=== PATIENT | female | born 1990 ===

== ENCOUNTER 2017-03-31 09:51 | Emergency (ER) | payer SELFPAY ==
[2017-03-31 09:58] VITALS: BMI 25.9
[2017-03-31 10:00] VITALS: BP 116/63; PULSE 71; RESP 19; TEMP 97.8; O2SAT 100
--- NOTE | 2017-03-31 10:51 | ED PDOC ---
HPI: Female Pain Time Seen by Provider: 03/31/17 10:06 Chief Complaint (Nursing): Abdominal Pain Chief Complaint (Provider): Abdominal Pain History Per: Patient History/Exam Limitations: no limitations Onset/Duration Of Symptoms: Days Current Symptoms Are (Timing): Still Present Severity: Mild Quality Of Discomfort: "Pain" Associated Symptoms: Urinary Symptoms. denies: Fever, Nausea, Diarrhea Alleviating Factors: None Additional Complaint(s): Patient is a 26 year old female who presents to ED for dysuria and hesitancy for 1 day. Patient notes mild suprapubic pain but denies nausea, vomiting, fever or hematuria. Admits she took no medication at home for symptoms Past Medical History Reviewed: Historical Data, Nursing Documentation, Vital Signs Vital Signs: Last Vital Signs Temp 97.8 F 03/31/17 09:58 Pulse 71 03/31/17 09:58 Resp 19 03/31/17 09:58 BP 116/63 03/31/17 09:58 Pulse Ox 100 03/31/17 09:58 - Medical History PMH: No Chronic Diseases - Surgical History Surgical History: Appendectomy - Family History Family History: States: Unknown Family Hx - Living Arrangements Living Arrangements: With Family - Home Medications Home Medications: Ambulatory Orders Medication Instructions Recorded Pnv with Ca,No.72/Iron/FA 1 tab PO DAILY #90 tab 03/14/15 [ Vitamins Plus] Ferrous Sulfate 325 mg PO BID #60 tab 11/18/15 Ibuprofen [Motrin] 600 mg PO Q6 PRN #30 tab 11/18/15 Sennosides A and B [Senokot Tab] 17.2 mg PO HS #30 tab 11/18/15 Nitrofurantoin Macrocrystals 100 mg PO BID #14 cap 03/31/17 [Macrobid] Phenazopyridine [Pyridium] 200 mg PO TID PRN #6 tab 03/31/17 - Allergies Allergies/Adverse Reactions: Allergies Allergy/AdvReac Type Severity Reaction Status Date / Time No Known Allergies Allergy Verified 03/27/15 22:20 Review of Systems ROS Statement: Except As Marked, All Systems Reviewed And Found Negative Constitutional: Negative for: Fever, Chills Gastrointestinal: Positive for: Abdominal Pain. Negative for: Nausea, Vomiting , Diarrhea Genitourinary Female: Positive for: Dysuria, Other (hesitancy). Negative for: Frequency, Hematuria, Vaginal Discharge, Vaginal Bleeding Musculoskeletal: Negative for: Back Pain Physical Exam - Reviewed Nursing Documentation Reviewed: Yes Vital Signs Reviewed: Yes - Physical Exam Appears: Positive for: Non-toxic, No Acute Distress Skin: Positive for: Normal Color, Warm Eye Exam: Positive for: Normal appearance Neck: Positive for: Normal Cardiovascular/Chest: Positive for: Regular Rate, Rhythm. Negative for: Murmur Respiratory: Positive for: Normal Breath Sounds. Negative for: Respiratory Distress Gastrointestinal/Abdominal: Positive for: Normal Exam, Soft. Negative for: Tenderness, Distended Back: Positive for: Normal Inspection. Negative for: L CVA Tenderness, R CVA Tenderness Extremity: Positive for: Normal ROM Neurologic/Psych: Positive for: Alert, Oriented - Laboratory Results Urine POC: Negative Urine dip results: Positive for: Leukocyte Esterase, Blood, Nitrate, Protein. Negative for: Ketones, Glucose, Bilirubin - ECG O2 Sat by Pulse Oximetry: 100 (RA) Pulse Ox Interpretation: Normal Medical Decision Making Medical Decision Making: Time: 1005 Initial impression: Abdominal pain r/o UTI Initial plan: -- Urine dip -- Urine preg Scribe Attestation: Documented by Tracey Sanders acting as a scribe for Haritha Rand MD MD Scribe Attestation: All medical record entries made by the Scribe were at my direction and personally dictated by me. I have reviewed the chart and agree that the record accurately reflects my personal performance of the history, physical exam, medical decision making, and the department course for this patient. I have also personally directed, reviewed, and agree with the discharge instructions and disposition. Disposition - Clinical Impression Clinical Impression: UTI (lower urinary tract infection) - Disposition Referrals: [facility] [Outside] Disposition: Routine/Home Disposition Time: 10:51 Condition: GOOD Prescriptions: Nitrofurantoin Macrocrystals [Macrobid] 100 mg PO BID #14 cap Phenazopyridine [Pyridium] 200 mg PO TID PRN #6 tab PRN Reason: Bladder Spasm Instructions: Urinary Tract Infection in Women (ED) Print Language: KINYARWANDA
--- NOTE | 2017-03-31 10:51 | ED PDOC ---
HPI: Female Pain Time Seen by Provider: 03/31/17 10:06 Chief Complaint (Nursing): Abdominal Pain Past Medical History Vital Signs: Last Vital Signs Temp 97.8 F 03/31/17 09:58 Pulse 71 03/31/17 09:58 Resp 19 03/31/17 09:58 BP 116/63 03/31/17 09:58 Pulse Ox 100 03/31/17 09:58 - Surgical History Surgical History: Appendectomy - Family History Family History: States: Unknown Family Hx - Home Medications Home Medications: Ambulatory Orders Medication Instructions Recorded Pnv with Ca,No.72/Iron/FA 1 tab PO DAILY #90 tab 03/14/15 [ Vitamins Plus] Ferrous Sulfate 325 mg PO BID #60 tab 11/18/15 Ibuprofen [Motrin] 600 mg PO Q6 PRN #30 tab 11/18/15 Sennosides A and B [Senokot Tab] 17.2 mg PO HS #30 tab 11/18/15 Nitrofurantoin Macrocrystals 100 mg PO BID #14 cap 03/31/17 [Macrobid] Phenazopyridine [Pyridium] 200 mg PO TID PRN #6 tab 03/31/17 - Allergies Allergies/Adverse Reactions: Allergies Allergy/AdvReac Type Severity Reaction Status Date / Time No Known Allergies Allergy Verified 03/27/15 22:20 - ECG O2 Sat by Pulse Oximetry: 100 Disposition - Clinical Impression Clinical Impression: UTI (lower urinary tract infection) - Disposition Referrals: [facility] [Outside] Disposition: Routine/Home Disposition Time: 10:50 Condition: GOOD Prescriptions: Nitrofurantoin Macrocrystals [Macrobid] 100 mg PO BID #14 cap Phenazopyridine [Pyridium] 200 mg PO TID PRN #6 tab PRN Reason: Bladder Spasm Instructions: Urinary Tract Infection in Women (ED) Print Language: IRANIAN
== END 2017-03-31 11:36 | disposition home or self-care (01) ==
LOC: H.ER 09:51
DX: N39.0 Urinary tract infection, site not specified (principal)

== ENCOUNTER 2017-11-01 14:07 | Emergency (ER) | payer OTHER ==
[2017-11-01 14:08] VITALS: BMI 25.9
[2017-11-01 14:28] VITALS: BP 107/68; PULSE 71; RESP 22; TEMP 98; O2SAT 100
--- NOTE | 2017-11-01 15:09 | ED PDOC ---
HPI: Abdomen Time Seen by Provider: 11/01/17 14:30 Chief Complaint (Nursing): Abdominal Pain Chief Complaint (Provider): Abdominal pain History Per: Patient History/Exam Limitations: no limitations Onset/Duration Of Symptoms: Days (3) Additional Complaint(s): Pt presents with lower abdominal pain and bloating X 3 days, had + test at home. Denies nausea, vomiting, vaginal bleeding, dysuria, hematuria. Pt with h/o ectopic on R side with resultant tuba removal. Abnormal Vaginal Bleeding: No Past Medical History Reviewed: Nursing Documentation, Vital Signs Vital Signs: Last Vital Signs Temp 98 F 11/01/17 14:25 Pulse 71 11/01/17 14:25 Resp 22 11/01/17 14:25 BP 107/68 11/01/17 14:25 Pulse Ox 100 11/01/17 16:41 - Medical History PMH: No Chronic Diseases - Surgical History Surgical History: Appendectomy Other surgeries: Ecoptic - Family History Family History: States: Unknown Family Hx - Living Arrangements Living Arrangements: With Family - Social History Current smoker - smoking cessation education provided: No - Home Medications Home Medications: Ambulatory Orders Medication Instructions Recorded Pnv with Ca,No.72/Iron/FA 1 tab PO DAILY #90 tab 03/14/15 [ Vitamins Plus] Ferrous Sulfate 325 mg PO BID #60 tab 11/18/15 Ibuprofen [Motrin] 600 mg PO Q6 PRN #30 tab 11/18/15 Sennosides A and B [Senokot Tab] 17.2 mg PO HS #30 tab 11/18/15 Nitrofurantoin Macrocrystals 100 mg PO BID #14 cap 03/31/17 [Macrobid] Phenazopyridine [Pyridium] 200 mg PO TID PRN #6 tab 03/31/17 Nitrofurantoin Macrocrystals 100 mg PO BID #13 cap 11/01/17 [Macrobid] Vit Calc,Iron,Folic 1 each PO DAILY #30 tablet 11/01/17 [ Vitamins] - Allergies Allergies/Adverse Reactions: Allergies Allergy/AdvReac Type Severity Reaction Status Date / Time No Known Allergies Allergy Verified 03/27/15 22:20 Review of Systems Constitutional: Negative for: Fever, Chills Cardiovascular: Negative for: Chest Pain Respiratory: Negative for: Cough, Shortness of Breath Gastrointestinal: Positive for: Abdominal Pain. Negative for: Nausea, Vomiting , Diarrhea Genitourinary Female: Negative for: Dysuria, Hematuria, Vaginal Discharge, Vaginal Bleeding Skin: Negative for: Rash, Lesions Neurological: Negative for: Headache Physical Exam - Reviewed Nursing Documentation Reviewed: Yes Vital Signs Reviewed: Yes - Physical Exam Appears: Positive for: Well, No Acute Distress Skin: Positive for: Normal Color, Warm, Dry Eye Exam: Positive for: Normal appearance, EOMI, PERRL Cardiovascular/Chest: Positive for: Regular Rate, Rhythm Respiratory: Positive for: Normal Breath Sounds Gastrointestinal/Abdominal: Positive for: Bowel Sounds, Soft, Tenderness (Mild suprapubic). Negative for: Mass, Distended, Guarding, Rebound Back: Positive for: Normal Inspection Extremity: Positive for: Normal ROM Neurologic/Psych: Positive for: Alert, Oriented - Laboratory Results Result Diagrams: 11/01/17 15:06 11/01/17 15:06 - ECG O2 Sat by Pulse Oximetry: 100 Medical Decision Making Medical Decision Makin yo with lower abdominal pain. - labs - pelvic ultrasound - Tylenol --16:22 FINDINGS:Obstetrical ultrasound There is a small cystic structure within the endometrial echo complex measuring 4 mm in diameter. This could represent an early intrauterine gestation. It is out of range for determination of age by gestational sac diameter. Questionable yolk sac seen. Cannot identified pole at this time. No detectable cardiac activity. The uterus measures 8.5 x 5.0 x 6.1 cm. There is no uterine mass. The endometrium measures 20 mm in width. The right ovary measures 1.7 x 1.7 x 3.2 cm. Normal flow is demonstrated with Doppler interrogation. The left ovary measures 3.5 x 4.3 x 4.8 cm. There is a simple left ovarian cyst measuring 2.7 x 3.8 x 3.9 cm. Normal flow is demonstrated within the left ovary by Doppler interrogation. IMPRESSION: Possible early intrauterine gestation, out of range for determination of age. Follow-up advised with serial beta HCG and transvaginal pelvic ultrasound examination. Incidental 3.9 cm simple left ovarian cyst. Findings discussed in detail with the patient, as well as need for close outpatient follow-up. States she will make appt @ [facility]. Disposition - Clinical Impression Clinical Impression: Abdominal pain during , UTI in - [facility]position [facility] Disposition: Routine/Home Disposition Time: 17:23 Condition: STABLE Additional Instructions: TAKE TYLENOL NEEDED FOR PAIN. Prescriptions: Nitrofurantoin Macrocrystals [Macrobid] 100 mg PO BID #13 cap Vit Calc,Iron,Folic [ Vitamins] 1 each PO DAILY #30 tablet Instructions: Abdominal Pain in (ED), Urinary Tract Infection in (ED) Forms: [employer] (Nepalese) Print Language: DOMINICAN
[2017-11-01 15:42] LABS: BASO % 0.4 % (0.0-2.0); EOS # 0.1 K/uL (0.0-0.7); EOS % 1.7 % (0.0-4.0); HEMOGLOBIN 14.4 g/dL (12.0-16.0); LYMPH # 2.2 K/uL (1.0-4.3); LYMPH % 32.9 % (20.0-40.0); MEAN CELL VOLUME 88.4 fl (81.0-99.0); MEAN CORPUSCULAR HEMOGLOBIN 30.1 pg (27.0-31.0); MEAN CORPUSCULAR HGB CONC 34.1 g/dL (33.0-37.0); MEAN PLATELET VOLUME 9.3 fl (7.2-11.7); MONO # 0.6 K/uL (0.0-0.8); MONO % 8.6 % (0.0-10.0); NEUT # 3.8 K/uL (1.8-7.0); NEUT % 56.4 % (50.0-75.0); RBC 4.8 Mil/uL (3.80-5.20); RED CELL DISTRIBUTION WIDTH 13.7 % (11.5-14.5); WHITE BLOOD COUNT 6.7 K/uL (4.8-10.8)
[2017-11-01 15:53] LABS: ALB/GLOB RATIO 1.3 (1.0-2.1); ALBUMIN 4.5 g/dL (3.5-5.0); ALT/SGPT 219 U/L (9-52); AST/SGOT 108 U/L (14-36); BLOOD UREA NITROGEN 10 mg/dl (7-17); CALCIUM 9.7 mg/dL (8.4-10.2); GFR AFRICAN-AMERICAN > 60; GFR NON-AFRICAN AMERICAN > 60
[2017-11-01 16:02] LABS: SQUAMOUS EPITHIAL 12 /hpf (0-5); URINE BACTERIA OCC (<OCC); URINE BILIRUBIN NEGATIVE (NEGATIVE); URINE BLOOD SMALL (NEGATIVE); URINE CLARITY CLOUDY (Clear); URINE COLOR YELLOW (YELLOW); URINE GLUCOSE (UA) NEG (Normal); URINE LEUKOCYTE ESTERASE LARGE Leu/uL (Negative); URINE NITRATE NEGATIVE (NEGATIVE); URINE PROTEIN NEGATIVE (NEGATIVE); URINE UROBILINOGEN 0.2-1.0 mg/dL (0.2-1.0)
--- NOTE | 2017-11-01 16:24 | US ---
PROCEDURE: Obstetrical ultrasound examination HISTORY: Lower abd pain COMPARISON: Not available TECHNIQUE: Transvaginal FINDINGS: There is a small cystic structure within the endometrial echo complex measuring 4 mm in diameter. This could represent an early intrauterine gestation. It is out of range for determination of age by gestational sac diameter. Questionable yolk sac seen. Cannot identified pole at this time. No detectable cardiac activity. The uterus measures 8.5 x 5.0 x 6.1 cm. There is no uterine mass. The endometrium measures 20 mm in width. The right ovary measures 1.7 x 1.7 x 3.2 cm. Normal flow is demonstrated with Doppler interrogation. The left ovary measures 3.5 x 4.3 x 4.8 cm. There is a simple left ovarian cyst measuring 2.7 x 3.8 x 3.9 cm. Normal flow is demonstrated within the left ovary by Doppler interrogation. IMPRESSION: Possible early intrauterine gestation, out of range for determination of age. Follow-up advised with serial beta HCG and transvaginal pelvic ultrasound examination. Incidental 3.9 cm simple left ovarian cyst.
== END 2017-11-01 18:00 | disposition home or self-care (01) ==
LOC: H.ER 14:07
DX: O23.40 Unspecified infection of urinary tract in pregnancy, unspecified trimester (principal); N83.291 Other ovarian cyst, right side

== ENCOUNTER 2018-06-16 09:50 | Emergency (ER) | payer MEDICAID, SELFPAY ==
[2018-06-16] MEDS ORDERED: Midazolam 2 MG/2 ML VIAL ONE (10:37)
[2018-06-16] MEDS: Lactated Ringer's 1,000 ML IV SCH ×2 (10:45→18:45)
--- NOTE | 2018-06-16 17:25 | OBHP ---
Datetime: 06/16/2018 10:33 IP Adm Impression: Term, intrauterine IP Admit Plan: Observation/Evaluation Admit Comment, IP Provider: Pt is a 27 y/o female with IUP 37 wks (ED 07/06) w/ hx of incompeten t cervix s/p cerclage placement, here for scheduled cerclage removal by Dr. Trimble. Pt denies any ctx , vb, lof. +FM. PNC: Dr. Trimble. Cerclage placed on 01/15/2018. Was taking Vaginal progesterone until 37 wks. OBHx: 1 prior SAB, 1 prior Ectopic s/p R. Tubal removal (2014), 1 prior NVD complicated with incom petent cervix (s/p cerclage) and preeclampsia (IOD at 38 wks)- 2015. PMHX: denies Surg Hx: Appendectomy, R. Tubal removal Meds: PNV Social: Denies habits x3 Allergies: NKDA VSS General: NAD Cardiopulmonary exam wnl Abdomen: Gravid, NT Ext: no edema FHR 147, reactive A: IUP 37.1 wks w/ hx of incompetent cervix s/p cerclage, here for scheduled cerclage removal by Yariel Trimble. P: Remove cerclage at bedside. Anesthesia called for sedation as pt was uncomfortable. Continuous monitoring. Discussed case w/ Dr. Atilio Washington PGY2 (Annotations: Data stored by CPN on behalf of user) Pelvic Type - PN: Adequate Extremities - PN: Normal Abdomen - PN: Normal Back - PN: Not Done Breast - PN: Not Done Lungs - PN: Normal Heart - PN: Normal Thyroid - PN: Not Done Neurologic - PN: Normal HEENT - PN: Normal General - PN: Normal EGA AdmitDate IP: 39.6 Vital Signs Provider: Reviewed IP Chief Complaint: Other Genitourinary Exam: Not Done DTRs - PN: Not Done
[2018-06-16 17:41] LABS: HEMOGLOBIN 11.7 g/dL (12.0-16.0); MEAN CELL VOLUME 83.3 fl (81.0-99.0); MEAN CORPUSCULAR HEMOGLOBIN 27.8 pg (27.0-31.0); MEAN CORPUSCULAR HGB CONC 33.4 g/dL (33.0-37.0); RBC 4.2 Mil/uL (3.80-5.20); RED CELL DISTRIBUTION WIDTH 15.8 % (11.5-14.5)
--- NOTE | 2018-06-16 18:52 | OBHP ---
Datetime: 06/16/2018 18:41 IP Adm Impression: Term, intrauterine IP Admit Plan: Admit to unit Admit Comment, IP Provider: Patient at 37.1 wks s/p Cerclage removal As patient with increased discomfort and pain with attempted cerclage removal, anesthesia consulte d for pain management and patient given Spinal anesthesia without complication. Patient taken to the OR and placed in the dorsal lithotomy position after anesthesia given without complication. Weighted speculum placed in the vagina and Breisky retractor used for lateral wall ret raction. Cerclage x 2 then well visualized. Ring forcep used to hold more posterior cerclage. Cerclag e then elevated and cut lateral to the knot with a [place] scissors. Cerclage then removed with gentle t raction. More anterior suture then removed in a similar fashion. Both stitches appeared grossly intac t. Minimal bleeding stopped with direct pressure. Patient tolerated procedure well. A/P: Patient at 37 wks with Cerclage removal under anesthesia --Will reexamine patient in 1 hr to r/o labor after cerclage removal --Will observe patient for 6 hrs post spinal --Will continue monitoring --If no onset of labor, patient to be discharged home with labor precautions and follow up as olivia blair on 06/18 FHR - Baseline A Provider: 140 EGA AdmitDate IP: 39.6 Vital Signs Provider: Reviewed IP Chief Complaint: Other NICHD Variability Prov Fetus A: Moderate 6-25bpm NICHD Accel Fetus A IP Provider: 15X15 Dilatation, Provider: Maci
[2018-06-18] MEDS ORDERED: Fentanyl/Bupivacaine HCl 250 ML EPI ONE (10:05)
[2018-06-19 17:33] VITALS: BP 121/82; PULSE 92; RESP 18; TEMP 97.9; O2SAT 100
== END 2018-06-17 10:30 | disposition home or self-care (01) ==
LOC: H.EROB2 09:50 → H.L&D 09:51 → H.EROB2 06-17 10:30
DX: O34.33 Maternal care for cervical incompetence, third trimester (principal); Z3A.37 37 weeks gestation of pregnancy
CPT/HCPCS: 85027; 99283; J7120

== ENCOUNTER 2018-06-22 22:53 | Emergency (ER) | payer OTHER ==
[2018-06-22 23:37] VITALS: BMI 30.4
[2018-06-23 00:06] LABS: SQUAMOUS EPITHIAL < 1 /hpf (0-5); URINE BACTERIA RARE (<OCC); URINE BILIRUBIN NEGATIVE (NEGATIVE); URINE BLOOD NEGATIVE (NEGATIVE); URINE CLARITY SLIGHTY-CLOUDY (Clear); URINE COLOR YELLOW (YELLOW); URINE GLUCOSE (UA) NEG (Normal); URINE LEUKOCYTE ESTERASE NEG Leu/uL (Negative); URINE PROTEIN NEGATIVE (NEGATIVE); URINE UROBILINOGEN 0.2-1.0 mg/dL (0.2-1.0)
[2018-06-23 04:30] VITALS: BP 121/85; PULSE 80; O2SAT 100
== END 2018-06-23 00:28 | disposition home or self-care (01) ==
LOC: H.EROB2 22:53
DX: O26.93 Pregnancy related conditions, unspecified, third trimester (principal); R10.2 Pelvic and perineal pain; O09.93 Supervision of high risk pregnancy, unspecified, third trimester; Z3A.38 38 weeks gestation of pregnancy; O47.1 False labor at or after 37 completed weeks of gestation

== ENCOUNTER 2018-06-27 09:00 | Inpatient (IN) | payer MEDICAID, SELFPAY ==
[2018-06-27 09:37] VITALS: BMI 32.3
[2018-06-27] MEDS ORDERED: Lactated Ringer's 500 ML IV SCH (10:00)
[2018-06-27] MEDS ORDERED: Lactated Ringer's 1,000 ML IV SCH ×2 (10:00→11:15)
[2018-06-27] MEDS ORDERED: Fentanyl/Bupivacaine HCl 250 ML EPI ONE (10:09)
[2018-06-27 10:17] LABS: BASO % 0.3 % (0.0-2.0); EOS # 0.1 K/uL (0.0-0.7); EOS % 0.9 % (0.0-4.0); HEMOGLOBIN 12.3 g/dL (12.0-16.0); LYMPH # 2.4 K/uL (1.0-4.3); LYMPH % 30.7 % (20.0-40.0); MEAN CELL VOLUME 81.4 fl (81.0-99.0); MEAN CORPUSCULAR HEMOGLOBIN 27.1 pg (27.0-31.0); MEAN CORPUSCULAR HGB CONC 33.3 g/dL (33.0-37.0); MEAN PLATELET VOLUME 9.7 fl (7.2-11.7); MONO # 0.6 K/uL (0.0-0.8); NEUT # 4.7 K/uL (1.8-7.0); NEUT % 60.1 % (50.0-75.0); NRBC % 0.2 % (0.0-0.0); RBC 4.55 Mil/uL (3.80-5.20); RED CELL DISTRIBUTION WIDTH 16.1 % (11.5-14.5); WHITE BLOOD COUNT 7.8 K/uL (4.8-10.8)
[2018-06-27] MEDS ORDERED: Oxytocin 30 UNIT 30 UNITS/500 ML BAG IV ONE ×2 (10:22→11:18)
[2018-06-27] MEDS ORDERED: Oxycodone/Acetaminophen 5/325 mg Tab PO PRN ×2 (10:59→14:14)
[2018-06-27] MEDS ORDERED: Benzocaine/Menthol SPRAY TOP PRN ×2 (10:59→14:14)
--- NOTE | 2018-06-27 11:03 | OBHP ---
Datetime: 06/27/2018 10:04 IP Adm Impression: Term, intrauterine IP Admit Plan: Admit to unit Admit Comment, IP Provider: HPI: 27 y/o with EGA 38.6, EDC 07/06/18, who presents today with c /o Uterine CONTX Q 5min, LOF and pelvic pain that started at 8AM. Denies vaginal bleeding. Denies tra ben, fall or any other complain now. Reports FM recnetly. OBGYN: Hx of Ectpic x1 , miscarriage x1, Third : had cervical cerclage and pree clapnsia, term . Current had cerclage. Care Provider: Dr Trimble. ROS: unremarkable, except HPI. PMH: None FMH: Mother HTN Allerg: NKA SURG: Appendectomy. MEDS: ASA 81 QD, PNV, Progesterone vag LABS: HIV neg, HB neg, GBS negative 06/18, Rubella +/inmune, GC/CL nonreactive, RPR neg, A/P 27 y/o with EGA 38.6, EDC 07/06/18 presenting with CONTX Q3 min. Patient is 5 cm dilation, with regular CONTX, we expect the patient to advance to active labor matilda ckly -Admit to L_D -Monitor Maternal VS, CONTX -FHR tracing monitoring -Type and screen -Anesthesai eval for epidural -IVF hydration with LR Case discussed with attending Dr Ana Sandoval MD PGY1 Attending Note: Patient was seen and evaluated with the resident and I agree with the assessment above. FHR - Baseline A Provider: 140 Comments, ACOG Physical Exam: GEN: NAD HEENT: normocephalic, EOMI RESP: CTA b/l CV: RRR, No murmurs noted ABD: Gravid LE: no edema IP Hx Assessment: The History has been Reviewed and is Current EGA AdmitDate IP: 38.5 Vital Signs Provider: Reviewed; Within Normal Limits IP Chief Complaint: Uterine contractions NICHD Variability Prov Fetus A: Moderate 6-25bpm NICHD Accel Fetus A IP Provider: 15X15 FHR Category Provider Fetus A: Category I Dilatation, Provider: 5 Effacement, Provider: 90 Station, Provider: -2 Datetime: 06/27/2018 10:03 Lungs - PN: Normal (Annotations: Data stored by CPN on behalf of user) Heart - PN: Normal HEENT - PN: Normal General - PN: Normal Datetime: 06/22/2018 23:52 Pelvic Type - PN: Adequate Extremities - PN: Normal Abdomen - PN: Normal Back - PN: Not Done Breast - PN: Not Done Thyroid - PN: Not Done Neurologic - PN: Not Done Gestation - Est Wks by US: 38.1 NICHD Decel Fetus A IP Provider: None Genitourinary Exam: Not Done DTRs - PN: Not Done
[2018-06-28 06:57] LABS: BASO % 0.4 % (0.0-2.0); EOS # 0.1 K/uL (0.0-0.7); EOS % 0.9 % (0.0-4.0); HEMOGLOBIN 11.5 g/dL (12.0-16.0); LYMPH # 2.3 K/uL (1.0-4.3); LYMPH % 26.9 % (20.0-40.0); MEAN CELL VOLUME 80.7 fl (81.0-99.0); MEAN CORPUSCULAR HEMOGLOBIN 27.3 pg (27.0-31.0); MEAN CORPUSCULAR HGB CONC 33.9 g/dL (33.0-37.0); MEAN PLATELET VOLUME 9.3 fl (7.2-11.7); MONO # 0.6 K/uL (0.0-0.8); MONO % 7.4 % (0.0-10.0); NEUT # 5.5 K/uL (1.8-7.0); NEUT % 64.4 % (50.0-75.0); NRBC % 0.1 % (0.0-0.0); RBC 4.19 Mil/uL (3.80-5.20); RED CELL DISTRIBUTION WIDTH 15.9 % (11.5-14.5); WHITE BLOOD COUNT 8.6 K/uL (4.8-10.8)
--- NOTE | 2018-06-28 11:52 | OBPPN ---
Datetime: 06/28/2018 08:11 PP Pain Prov: Within normal limits PP Nausea Prov: Denies PP Flatus Prov: Yes PP BM Prov: Yes PP Breasts Prov: Not Done PP Heart Prov: Normal PP Lungs Prov: Normal PP Abdomen/Uterus Prov: Normal PP Lochia Prov: Normal PP Vulva/Perineum Prov: Not Done PP CVA Tenderness Prov: Not Done PP Extremities Prov: Normal PP C/S Incision Prov: Not Applicable PP Progress Prov: Normal PP Impression Prov: Normal progression PP Plan Prov: Continue present management PP Progress Note Prov: PPD 1 S:27 y/o f s/p on 06/27, seen and evaluated on PPD 1. Pt has no concerns or complaints . Reports mild abominal pain, did not ask for pain medication as it was mild. Tolerating liquid diet. Ambulating to bathroom without any difficulties. Lochia _ menses. Breast feeding w/o difficulty. +BM this morning. O: Vitals stable, afberile, good urine output. H/H 11.5/33.8 Cardiopulmonary exam wnl Fundus: firm Ext: No edema A/P: 23 yo female 38.4 normal vaginal delivery on 06/27, doing well on PPD1. Pain controlled . Continue with current managment. Advancing diet to regular this am. Carter, PGY2 Addendum by Dr. Perez: Patient evaluated independently and I agree with the above Vital Signs Provider PP: Reviewed; Within Normal Limits
--- NOTE | 2018-06-29 10:50 | OBPPN ---
Datetime: 06/29/2018 07:40 PP Pain Prov: Within normal limits PP Nausea Prov: Denies PP Flatus Prov: Yes PP BM Prov: Yes PP Comments Phys Exam Prov: See progress note PP Impression Prov: Normal progression PP Plan Prov: Continue present management; Discharge PP Progress Note Prov: S: Patient seen this morning at bedside, she is now s/p on 06/27, on her PPD 2. Pt has no complaints today. Reports minimal abdominal pain and did not ask for pain me dication last night, she is tolerating liquid diet w/o N/V, ambulating to bathroom without any diffic ulties, lochia is less than menses in volume, Breast feeding w/o difficulty and using formula as comp lementary, patient reports she had BM already. O:VS WNL PE GEN:NAD HEENT: EOMI, Mucous membrane moist. RESP:CTA b/l CV: RRR, no murmurs heard ABD: soft, nontender, uterus firm below umbilicus LE: No edema, Natalie's negative. A/P 27 y/o now s/p on 06/27, going into her PPD2 today with normal post- progression . Patient is stable to be D/C home. Patient reports she has appt for post- f/u with Dr Atilio boyer 08/11. -Encourage ambulation -Encourage -PNV 1 tab PO daily -Tylenol tab 650 mg PO Q6h prn for mild-mod pain -D/C home today Elsy Sandoval MD PGY1 Attending addendum: I saw and examined the pt at bedside myself this morning. I reviewed the resident note above and a gree with findings and management. Patient for discharge today, f/u in 4-6wks with Dr. Trimble at [facility] for routine pp care. Strict PEC precautions given to patient and support given. Lakisha Gallegos MD Vital Signs Provider PP: Reviewed; Within Normal Limits
--- NOTE | 2018-06-29 10:52 | OBDCSUM ---
Datetime: 06/29/2018 08:11 Discharged to, Provider: Home Follow up at, Provider: Dr Trimble at [facility] Disch Instr Activity: May Shower Disch Instr Diet: Regular Discharge Instructions, Provider: Routine instructions given Discharge Diagnosis, Provider: Term Delivered Discharge Time: 06/29/2018 12:00 Follow up in weeks, Provider: 6 weeks Disch Referrals: None Contraception discussed, Prov: Yes Disch Activity Restrictions: Minimize stair-climbing; No sexual activity; Nothing in vagina - Interc ourse, tampons, douche Discharge Comment, Provider: EGA: 38.6wk Diagnosis: 27 y/o , s/p on 06/27/18 @ 10:26. She delivered a baby girl, Wt 3485 gms, A PGAR 07/12 Summary: Patient is PPD2 with normal progression. No complications during post- period. Loch ia less than menses. Pt was able to pass gas and had BM, She is tolerating regular diet, Fundus firm below umbilicus, able to ambulate w/o any difficulties, voiding well, denies fever, chills, DELEON, SOB, N/V, calf pain. CBC post-: H/H-11.5/33.8 on 06/28 Discharge Instructions: Continue and increase PNV 1 tab PO daily. Tylenol 650mg PO Q6h prn for mild-mod pain. Pt is planning to use OCP for contraception. Ambulation encouraged. Instructions given to avoid heavy lifting and strenous activities. Instructions given to patient: If excessive bleeding, return of pain or increasing pain and/or fev er without relief from medication, go to ED. PT was urged if feeling sad, mood swing, depression, neglect of baby, suicidal thoughts, homicidal thought should go to ED or call 911 for help. Pt should go to her Primary care doctor if she has difficulty with . F/U post- visit in 4 to 6 weeks. MD [place] PGY1 Attending addendum: I saw and examined the patien at bedside this morning myself. I reviewed the resident note above a nd agree with findings and management. DC home today. Lakisha Gallegos MD Contraception after Delivery: Control Pill/Patch
[2018-06-29 18:06] VITALS: BP 131/73; PULSE 93; RESP 20; TEMP 98.2; O2SAT 98
== END 2018-06-29 12:30 | disposition home or self-care (01) | DRG 775 ==
LOC: H.EROB2 09:00 → H.L&D 09:38 → H.OB/GYN 14:06
PROVIDERS: ADMIT Obstetrics & Gynecology; ATTEND Obstetrics & Gynecology
PROC: 10E0XZZ Delivery of Products of Conception, External Approach (ICD-10-PCS; principal; 2018-06-27)
PROC: 4A1HXCZ Monitoring of Products of Conception, Cardiac Rate, External Approach (ICD-10-PCS; 2018-06-27)
DX: O80 Encounter for full-term uncomplicated delivery (principal); Z37.0 Single live birth; Z3A.38 38 weeks gestation of pregnancy